=== PATIENT | male | born 1980 | race African-American/Black ===

== ENCOUNTER 2022-02-28 11:56 | Emergency (ER) | payer SELFPAY ==
[~2022-02-28] VITALS: Ht 170.2 cm; Wt 55.7 kg
[2022-02-28 12:14] VITALS: BP 143/68
[2022-02-28] MEDS ORDERED: HYDR-2761 PO (12:40)
[2022-02-28] MEDS ORDERED: CLIN-94 PO (12:40)
[2022-02-28] MEDS ORDERED: CHLO15MO2 PO (12:40)
--- NOTE | 2022-02-28 12:41 | PHYS DOC ---
Past Medical History Past Surgical History: No Surgical History General Adult EDM: Chief Complaint: DENTAL PROBLEM HPI: HPI: Patient is a 41 year old male who presents with 3 days of right lower back molar dental pain with facial swelling. Denies fever. Patient states he does have a dentist and he will make a appointment. Review of Systems: Review of Systems: Constitutional: Denies fever or chills. [] Eyes: Denies change in visual acuity. [] HENT: Denies nasal congestion or sore throat. +Right facial dental abscess [] Respiratory: Denies cough or shortness of breath. [] Cardiovascular: Denies chest pain or edema. [] GI: Denies abdominal pain, nausea, vomiting, bloody stools or diarrhea. [] : Denies dysuria. [] Musculoskeletal: Denies back pain or joint pain. + Right lower facial pain [] Integument: Denies rash. [] Neurologic: Denies headache, focal weakness or sensory changes. [] Endocrine: Denies polyuria or polydipsia. [] Lymphatic: Denies swollen glands. [] Psychiatric: Denies depression or anxiety. [] Heart Score: C/O Chest Pain: No Allergies: Allergies: Allergies Coded Allergies Type Severity Reaction Last Updated Verified Penicillins Allergy Intermediate 02/28/22 Yes Physical Exam: PE: Constitutional: Well developed, well nourished, no acute distress, non-toxic appearance. [] HENT: Normocephalic, atraumatic, bilateral external ears normal, oropharynx moist, no oral exudates, nose normal. [] Eyes: PERRLA, EOMI, conjunctiva normal, no discharge. [] Neck: Normal range of motion, no tenderness, supple, no stridor. [] Cardiovascular:Heart rate regular rhythm, no murmur [] Lungs & Thorax: Bilateral breath sounds clear to auscultation [] Abdomen: Bowel sounds normal, soft, no tenderness, no masses, no pulsatile masses. [] Skin: Warm, dry, no erythema, no rash. [] Back: No tenderness, no CVA tenderness. [] Extremities: No tenderness, no cyanosis, no clubbing, ROM intact, no edema. [] Neurologic: Alert and oriented X 3, normal motor function, normal sensory function, no focal deficits noted. [] Psychologic: Affect normal, judgement normal, mood normal. [] Current Patient Data: Vital Signs: Vital Signs Date Time Temp Pulse Resp B/P (MAP) Pulse Ox O2 Delivery O2 Flow Rate FiO2 02/28/22 12:14 98.6 91 16 143/68 (93) 96 Room Air 98.6 EKG: EKG: [] Radiology/Procedures: Radiology/Procedures: [] Course & Med Decision Making: Course & Med Decision Making Pertinent Labs and Imaging studies reviewed. (See chart for details) See HPI. Alert and oriented x4. Ambulatory steady gait. Speaks in full clear sentences. Can open mouth fully. No trismus. Can stick out his tongue fully. Afebrile. Nonseptic appearing. Vital signs within normal limits. Many dental caries and broken teeth. Right lower facial swelling 2+. No cellulitis. Tenderness to the gumline. No drainage. [] Dragon Disclaimer: Dragon Disclaimer: This electronic medical record was generated, in whole or in part, using a voice recognition dictation system. Departure Departure Impression: Primary Impression: Dental abscess Additional Impression: Dental caries Disposition: HOME / SELF CARE / HOMELESS Condition: STABLE Referrals: NO PCP (PCP) Patient Instructions: Carbamide Peroxide dental solution, Dental Abscess, Dental Caries Additional Instructions: Follow-up with a dentist as soon as possible. Take medication as prescribed and with food. If start running a high fever or you cannot open your mouth or stick out your tongue is when he should come back to the emergency room. We do not have a dentist on staff here in the hospital. It would be best to go to the emergency room that had a dentist if you begin having the symptoms above. Scripts Hydrocodone Bit/Acetaminophen (HYDROCODONE-APAP 5-325 ) 1 Tab Tablet 1 TAB PO PRN Q6HRS PRN for PAIN, #10 TAB 0 Refills Prov: ADRIANA CATALAN APRN 02/28/22 Clindamycin Hcl (CLINDAMYCIN HCL) 300 Mg Capsule 1 CAP PO TID, #30 CAP Prov: ADRIANA CATALAN APRN 02/28/22 Chlorhexidine Gluconate (PERIDEX) 15 Ml Mouthwash 15-30 ML PO TID for 8 Days, #473 ML 0 Refills Prov: ADRIANA CATALAN APRN 02/28/22 ADRIANA CATALAN APRN February 28, 2022 12:41
== END 2022-02-28 12:50 | disposition home or self-care (01) ==
LOC: ER 11:56
DX: K04.7 Periapical abscess without sinus (principal); K02.9 Dental caries, unspecified; Z88.0 Allergy status to penicillin
CPT/HCPCS: 99283